=== PATIENT | female | born 1990 | race Caucasian/White ===

== ENCOUNTER 2017-01-23 13:54 | Emergency (ER) | payer MEDICAID, MEDICARE, OTHER ==
[2017-01-23 14:03] VITALS: BMI 22.7
[2017-01-23 14:06] VITALS: BP 125/79; PULSE 67; RESP 18; TEMP 97.9; O2SAT 99
--- NOTE | 2017-01-23 14:20 | C.PDOC ---
History Of Present Illness 26 year old female presents to the ED for evaluation of her left lower leg and knee pain that developed since yesterday. Pt states that while at work she misstep and her leg got trapped between a truck and a loading dock she noted a hematoma to the calf area and immediately applied ice, today she felt more pain to the lateral left knee with some discomfort ambulating. Otherwise, Patient denies head injury, LOC, syncope, denies obvious deformity, weakness, neurovascular deficits to left lower extremity. Ambulate to ED. Time Seen by Provider: 01/23/17 14:07 Chief Complaint (Nursing): Lower Extremity Problem/Injury History Per: Patient History/Exam Limitations: no limitations Onset/Duration Of Symptoms: Days Current Symptoms Are (Timing): Still Present Recent travel outside of the [place]: No Additional History Per: Patient - Knee Description Of Injury: Struck Against Object Currently Unable To: Bear Weight Alleviating Factor(s): Ice Therapy Past Medical History Reviewed: Historical Data, Nursing Documentation, Vital Signs Vital Signs: Last Vital Signs Temp 97.9 F 01/23/17 14:03 Pulse 67 01/23/17 14:03 Resp 18 01/23/17 14:03 BP 125/79 01/23/17 14:03 Pulse Ox 99 01/23/17 14:38 - Medical History PMH: Anxiety, Arthritis (b/l knees as per patient), Bipolar Disorder Surgical History: Appendectomy - [facility] Procedures ANESTH INJECT-SPIN CANAL (10/25/12) MONITORING NOS (07/11/14) INDIVID PSYCHOTHERAP NEC (04/04/13) MANUAL ASSIST DELIV NEC (07/11/14) OTHER GROUP THERAPY (04/04/13) REPAIR OB LACERATION NEC (07/11/14) Family History: States: Unknown Family Hx - Social History Hx Tobacco Use: Yes (Heavy smoker) Hx Alcohol Use: Yes Hx Substance Use: No - Immunization History Hx Tetanus Toxoid Vaccination: No Hx Influenza Vaccination: No Hx Pneumococcal Vaccination: No Review Of Systems Constitutional: Negative for: Fever, Chills Cardiovascular: Negative for: Chest Pain Respiratory: Negative for: Cough, Shortness of Breath Gastrointestinal: Negative for: Nausea, Vomiting, Abdominal Pain Musculoskeletal: Positive for: Leg Pain (Left knee) Skin: Positive for: Bruising Neurological: Negative for: Weakness, Numbness, Headache, Dizziness Physical Exam - Physical Exam Appears: Well, Non-toxic, No Acute Distress Skin: Normal Color, Warm, No Rash, Ecchymosis (Left lower leg) Head: Atraumatic, Normacephalic Eye(s): bilateral: PERRL Extremity: Normal ROM (mild discomfort to left knee Flexion ), Tenderness ( medial aspect Left knee), Capillary Refill (less than 2sec to left foot), No Deformity, Other (trace ecchymoses with small hematoma over inner aslepct proximal tibia.) Neurological/Psych: Oriented x3, Normal Speech, Normal Motor, Normal Sensation, Normal Reflexes ED Course And Treatment O2 Sat by Pulse Oximetry: 99 (On RA) Pulse Ox Interpretation: Normal - Other Rad Left knee X-Ray: Interpreted by Me, Viewed By Me Interpretation: IMPRESSION: No evidence of acute displaced fracture nor dislocation. Left tib/fib X-Ray: Interpreted by Me, Viewed By Me Interpretation: IMPRESSION: No evidence acute displaced fracture nor dislocation. Progress Note: On re-evaluation, pt is afebrile, hemodynamicaly stable. Non- toxic. Ambulatory in ED with stable gait. Head: AT/NC. neck: Supple, (-) mildline tenderness. Left LE; exam c/w knee contusion, hematoma to calf area, no obvious deformity, no neurovascular deficits. XR review and appears normal study. Aashish wrap to left knee applied. Pt has clinical findings c/w left knee strain, lft lower leg hematoma. Pt advised. ref. to f/u with Ortho in 2-3 days for re-eavl. return to ED if any worsening or new changes. Disposition Counseled Patient/Family Regarding: Studies Performed, Diagnosis, Need For Followup, Rx Given - Disposition Referrals: Matt Anderson MD [Medical Doctor] - Vicente Briceno MD [Staff Provider] - Disposition Time: 15:01 Condition: STABLE Additional Instructions: KNEE BRACE/AVE WRAP TO LEFT KNEE FOR 1-2 WEEKS LIGHT DUTY TO INJURED LEG, AVOID PROLONG WALKING FOR 1 WEEK IBUPROFEN NEED FOR PAIN FOLLOW UP WITH ORTHOPEDIST IN 2-3 DAYS FOR RE-EVALUATION. RETURN TO ED IF ANY WORSENING OR NEW CHANGES. Instructions: Knee Sprain (ED), Hematoma (ED) Forms: [facility] (Romansh), Work Excuse - Clinical Impression Clinical Impression: Contusion of lower leg, left, Knee sprain - PA / PROGRAM PRODUCTION SPECIALIST / Resident Statement MD/DO has reviewed & agrees with the documentation as recorded. - Scribe Statement The provider has reviewed the documentation as recorded by the Scribe Juan Weinstein All medical record entries made by the Libbyibroly were at my direction and personally dictated by me. I have reviewed the chart and agree that the record accurately reflects my personal performance of the history, physical exam, medical decision making, and the department course for this patient. I have also personally directed, reviewed, and agree with the discharge instructions and disposition.
--- NOTE | 2017-01-23 15:13 | RAD ---
PROCEDURE: Left knee dated 01/23/2017 HISTORY: Pain. COMPARISON: Correlation made with concurrent radiographs of the left tibia and fibula. FINDINGS: BONES: Normal. No evidence of acute displaced fracture nor dislocation. Fracture. JOINTS: Joint spaces preserved. No significant Osteoarthritis. JOINT EFFUSION: No significant joint effusion. OTHER FINDINGS: No subcutaneous air or radiopaque foreign bodies IMPRESSION: No evidence of acute displaced fracture nor dislocation.
--- NOTE | 2017-01-23 15:14 | RAD ---
PROCEDURE: Left tibia fibula dated 01/23/2017 HISTORY: Injury. COMPARISON: No prior study available for comparison however correlation made with concurrent radiographs of the left knee. TECHNIQUE: Frontal and lateral views obtained. FINDINGS: BONES: No evidence of acute displaced fracture nor dislocation. The osseous structures appear intact. No cortical destructive changes. JOINT SPACES: Joint spaces preserved. No significant osteoarthritis. OTHER FINDINGS: No evidence of subcutaneous air. No radiopaque foreign bodies. IMPRESSION: No evidence acute displaced fracture nor dislocation.
== END 2017-01-23 15:39 | disposition home or self-care (01) ==
LOC: C.ER 13:54
DX: S83.92XA Sprain of unspecified site of left knee, initial encounter (principal); S80.12XA Contusion of left lower leg, initial encounter; W23.0XXA Caught, crushed, jammed, or pinched between moving objects, initial encounter; Y92.89 Other specified places as the place of occurrence of the external cause; Y99.0 Civilian activity done for income or pay

== ENCOUNTER 2017-04-28 16:35 | Emergency (ER) | payer MEDICAID, MEDICARE, OTHER ==
[2017-04-28 16:35] VITALS: BMI 22.7
[2017-04-28 16:41] VITALS: BP 128/77; PULSE 78; RESP 20; TEMP 98.3; O2SAT 98
--- NOTE | 2017-04-28 17:20 | C.PDOC ---
History Of Present Illness 26 y/o female presents to ED with complaints of itchy rash for 1 week developed first on chest and spread to back. Patient reports not applying any medication to area and denies fever, sob or chest pain. Time Seen by Provider: 04/28/17 17:02 Chief Complaint (Nursing): Allergic Reaction History Per: Patient History/Exam Limitations: no limitations Onset/Duration Of Symptoms: Days Current Symptoms Are (Timing): Still Present Past Medical History Reviewed: Historical Data, Nursing Documentation, Vital Signs Vital Signs: Last Vital Signs Temp 98.3 F 04/28/17 16:39 Pulse 78 04/28/17 16:39 Resp 20 04/28/17 16:39 BP 128/77 04/28/17 16:39 Pulse Ox 98 04/28/17 19:33 - Medical History PMH: Anxiety, Arthritis (b/l knees as per patient), Bipolar Disorder Surgical History: Appendectomy - [facility] Procedures ANESTH INJECT-SPIN CANAL (10/25/12) MONITORING NOS (07/11/14) INDIVID PSYCHOTHERAP NEC (04/04/13) MANUAL ASSIST DELIV NEC (07/11/14) OTHER GROUP THERAPY (04/04/13) REPAIR OB LACERATION NEC (07/11/14) Family History: States: No Known Family Hx - Social History Hx Tobacco Use: Yes (Heavy smoker) Hx Alcohol Use: Yes Hx Substance Use: No - Immunization History Hx Tetanus Toxoid Vaccination: No Hx Influenza Vaccination: No Hx Pneumococcal Vaccination: No Review Of Systems Constitutional: Negative for: Fever, Chills Cardiovascular: Negative for: Chest Pain Respiratory: Negative for: Shortness of Breath Gastrointestinal: Negative for: Nausea, Vomiting Skin: Positive for: Rash Physical Exam - Physical Exam Appears: Non-toxic, No Acute Distress Skin: Warm, Dry, Rash (pink colored scaly patches to chest and back) Head: Atraumatic, Normacephalic Eye(s): bilateral: Normal Inspection, EOMI Ear(s): Bilateral: Normal Oral Mucosa: Moist Throat: Normal, No Erythema, No Exudate Neck: Normal ROM, Supple Cardiovascular: Rhythm Regular Respiratory: Normal Breath Sounds, No Rales, No Rhonchi, No Wheezing Gastrointestinal/Abdominal: Soft, No Tenderness, No Guarding, No Rebound Extremity: Bilateral: Atraumatic Neurological/Psych: Oriented x3, Normal Speech Gait: Steady ED Course And Treatment O2 Sat by Pulse Oximetry: 98 (RA) Pulse Ox Interpretation: Normal Medical Decision Making Medical Decision Making: Patient with rash for one week. rash appears similar to pityriasis rosea and there are some scaly annular lesions on back. Will treat with antifungal cream and advise follow up with television reporter Disposition Counseled Patient/Family Regarding: Diagnosis, Need For Followup, Rx Given - Disposition Referrals: Breann French MD [Staff Provider] - Disposition: HOME/ ROUTINE Disposition Time: 17:15 Condition: GOOD Additional Instructions: apply cream to affected areas twice a day for 2-4 weeks follow up with television reporter if rash persists Prescriptions: Ketoconazole 2% Cr [Nizoral] 15 applic EXT BID 14 Days #1 tube Instructions: Ringworm Forms: [facility] (Burundian) - POA Present On Arrival: None - Clinical Impression Clinical Impression: Pityriasis rosea-like skin eruption, Tinea - PA / SCUDDING INSPECTOR / Resident Statement MD/DO has reviewed & agrees with the documentation as recorded. - Scribe Statement The provider has reviewed the documentation as recorded by the Theodore Paz All medical record entries made by the Theodore were at my direction and personally dictated by me. I have reviewed the chart and agree that the record accurately reflects my personal performance of the history, physical exam, medical decision making, and the department course for this patient. I have also personally directed, reviewed, and agree with the discharge instructions and disposition.
== END 2017-04-28 17:40 | disposition home or self-care (01) ==
LOC: C.ER 16:35
DX: L42 Pityriasis rosea (principal); B35.9 Dermatophytosis, unspecified; F17.210 Nicotine dependence, cigarettes, uncomplicated

== ENCOUNTER 2017-05-12 20:08 | Emergency (ER) | payer OTHER ==
[2017-05-12 20:08] VITALS: BMI 22.7
[2017-05-12 20:31] VITALS: BP 113/71; PULSE 54; RESP 20; TEMP 98.1; O2SAT 98
--- NOTE | 2017-05-12 20:58 | C.PDOC ---
History Of Present Illness 26 year old female presents to the ED complaining of itchy rash for 3 weeks. Initially the rash was localized to her chest, but has been spreading throughout extremities. Patient was seen here 2 weeks ago and discharged with antifungal cream. States she tried applying the cream with no improvement. Patient has not been able to follow up with dermatology. No fever, SOB, or chest pain. Time Seen by Provider: 05/12/17 20:32 Chief Complaint (Nursing): Abnormal Skin Integrity History Per: Patient History/Exam Limitations: no limitations Onset/Duration Of Symptoms: Days (x 3 weeks) Current Symptoms Are (Timing): Still Present Quality Of Symptoms: Itching Past Medical History Reviewed: Historical Data, Nursing Documentation, Vital Signs Vital Signs: Last Vital Signs Temp 98.1 F 05/12/17 20:27 Pulse 54 L 05/12/17 20:27 Resp 20 05/12/17 20:27 BP 113/71 05/12/17 20:27 Pulse Ox 98 05/12/17 21:01 - Medical History PMH: Anxiety, Arthritis (b/l knees as per patient), Bipolar Disorder Surgical History: Appendectomy - [facility] Procedures ANESTH INJECT-SPIN CANAL (10/25/12) MONITORING NOS (07/11/14) INDIVID PSYCHOTHERAP NEC (04/04/13) MANUAL ASSIST DELIV NEC (07/11/14) OTHER GROUP THERAPY (04/04/13) REPAIR OB LACERATION NEC (07/11/14) Family History: States: Unknown Family Hx - Social History Hx Tobacco Use: Yes (Heavy smoker) Hx Alcohol Use: Yes Hx Substance Use: No - Immunization History Hx Tetanus Toxoid Vaccination: No Hx Influenza Vaccination: No Hx Pneumococcal Vaccination: No Review Of Systems Constitutional: Negative for: Fever, Chills Cardiovascular: Negative for: Chest Pain Respiratory: Negative for: Shortness of Breath Skin: Positive for: Rash (to chest, back, extremities) Physical Exam - Physical Exam Appears: Well, Non-toxic, No Acute Distress Skin: Warm, Dry, Rash ([place] colored scaly patches to chest, back, and upper and lower extremities) Head: Atraumatic, Normacephalic Eye(s): bilateral: Normal Inspection Neck: Normal ROM, Supple Chest: Symmetrical Cardiovascular: Rhythm Regular, No Murmur Respiratory: Normal Breath Sounds, No Accessory Muscle Use, No Rales, No Rhonchi , No Wheezing Extremity: Bilateral: Atraumatic, Normal ROM Neurological/Psych: Oriented x3, Normal Speech ED Course And Treatment O2 Sat by Pulse Oximetry: 98 (RA) Pulse Ox Interpretation: Normal Medical Decision Making Medical Decision Making: Impression: pityriasis rosea Counseled patient regarding diagnosis and the need for follow up with dermatology. Will discharge patient with Clotrimazole 1% cream. Disposition Counseled Patient/Family Regarding: Diagnosis, Need For Followup, Rx Given - Disposition Referrals: Isma Montes MD [Staff Provider] - Breann French MD [Staff Provider] - Disposition: HOME/ ROUTINE Disposition Time: 20:55 Condition: STABLE Additional Instructions: Your rash appears to be pityriasis rosea which is self limited and will resolve on its own can take 2-8 weeks to clear. You can take Carina, Claritin, or Benadryl for any itching. Apply cream as needed You can follow up with computer science professor Prescriptions: Clotrimazole 1% Cream [Lotrimin 1%] 1 gm TP DAILY #1 tube Instructions: Pityriasis Rosea Forms: [employer] [facility] (Portuguese) - POA Present On Arrival: None - Clinical Impression Clinical Impression: Pityriasis rosea-like skin eruption - PA / POWER SYSTEM ELECTRICAL ENGINEER / Resident Statement MD/DO has reviewed & agrees with the documentation as recorded. - Scribe Statement The provider has reviewed the documentation as recorded by the Scribe (Kylee Dillard) All medical record entries made by the Scribe were at my direction and personally dictated by me. I have reviewed the chart and agree that the record accurately reflects my personal performance of the history, physical exam, medical decision making, and the department course for this patient. I have also personally directed, reviewed, and agree with the discharge instructions and disposition.
== END 2017-05-12 20:55 | disposition home or self-care (01) ==
LOC: C.ER 20:08
DX: L42 Pityriasis rosea (principal); F17.210 Nicotine dependence, cigarettes, uncomplicated

== ENCOUNTER 2017-08-12 10:03 | Emergency (ER) | payer SELFPAY ==
[2017-08-12 10:03] VITALS: BMI 22.7
[2017-08-12 10:20] VITALS: BP 120/80; PULSE 78; RESP 18; TEMP 99.5; O2SAT 100
--- NOTE | 2017-08-12 10:34 | C.PDOC ---
History Of Present Illness 27yo female, presents to ED for evaluation of rash to bilateral eyes for the past 2 days . Patient states the rash is itchy but denies any pain. She denies any new soaps, detergent, or lotion use. No vision changes, fever or chills. Time Seen by Provider: 08/12/17 10:12 Chief Complaint (Nursing): Abnormal Skin Integrity History Per: Patient History/Exam Limitations: no limitations Onset/Duration Of Symptoms: Days (2) Current Symptoms Are (Timing): Still Present Quality Of Symptoms: Itching Past Medical History Reviewed: Historical Data, Nursing Documentation, Vital Signs Vital Signs: Last Vital Signs Temp 99.5 F 08/12/17 10:08 Pulse 78 08/12/17 10:08 Resp 18 08/12/17 10:08 BP 120/80 08/12/17 10:08 Pulse Ox 100 08/12/17 10:51 - Medical History PMH: Anxiety, Arthritis (b/l knees as per patient), Bipolar Disorder Surgical History: Appendectomy - [facility] Procedures ANESTH INJECT-SPIN CANAL (10/25/12) MONITORING NOS (07/11/14) INDIVID PSYCHOTHERAP NEC (04/04/13) MANUAL ASSIST DELIV NEC (07/11/14) OTHER GROUP THERAPY (04/04/13) REPAIR OB LACERATION NEC (07/11/14) Family History: States: Unknown Family Hx - Social History Hx Tobacco Use: Yes (Heavy smoker) Hx Alcohol Use: Yes Hx Substance Use: No - Immunization History Hx Tetanus Toxoid Vaccination: No Hx Influenza Vaccination: No Hx Pneumococcal Vaccination: No Review Of Systems Except As Marked, All Systems Reviewed And Found Negative. Eyes: Positive for: Other (rash around bilateral eyes). Negative for: Vision Change Respiratory: Negative for: Shortness of Breath Physical Exam - Physical Exam Appears: Non-toxic, No Acute Distress Skin: Warm, Dry, Rash (maculopapular erythematous rash on bilateral eyes, right > left. no ocular involvement, no lesions, no vesicles) Eye(s): bilateral: Normal Inspection, PERRL, EOMI Oral Mucosa: Moist Cardiovascular: Rhythm Regular Respiratory: Normal Breath Sounds Neurological/Psych: Oriented x3 ED Course And Treatment O2 Sat by Pulse Oximetry: 100 (RA) Pulse Ox Interpretation: Normal Medical Decision Making Medical Decision Making: Impression: Rash Plan: -- Prednisone 60mg PO Progress: Patient reports feeling much better, stable for discharge home. Instructed to take medications as prescribed and follow up with PMD in 2-3 days. Disposition Counseled Patient/Family Regarding: Studies Performed, Diagnosis - Disposition Referrals: Matt Anderson MD [Medical Doctor] - Disposition: HOME/ ROUTINE Disposition Time: 10:37 Condition: STABLE Additional Instructions: follow up with your doctor within 2 days call to make an appointment take medications as prescribed return to ER if symptoms worsens or progress take benadryl as needed for itching Prescriptions: Hydrocortisone 1% Cream [Cortizone 1% Cream] 1 appl TP BID #1 tube predniSONE [predniSONE Tab] 20 mg PO BID #10 tab Instructions: Skin Rash (DC) Forms: [facility] (Georgian), General Discharge Instructions - Clinical Impression Clinical Impression: Rash - Scribe Statement The provider has reviewed the documentation as recorded by the Scribe (Macarena Avila) Provider Attestation: All medical record entries made by the Scribe were at my direction and personally dictated by me. I have reviewed the chart and agree that the record accurately reflects my personal performance of the history, physical exam, medical decision making, and the department course for this patient. I have also personally directed, reviewed, and agree with the discharge instructions and disposition.
== END 2017-08-12 11:00 | disposition home or self-care (01) ==
LOC: C.ER 10:03
DX: R21 Rash and other nonspecific skin eruption (principal)

== ENCOUNTER 2018-04-12 04:15 | Emergency (ER) | payer SELFPAY ==
[2018-04-12 04:16] VITALS: BMI 22.7
[2018-04-12 04:35] VITALS: TEMP 97.5
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
[2018-04-12] MEDS ORDERED: Ophthalmic Irrigation, Soln ONE (05:45)
[2018-04-12] MEDS ORDERED: Ophthalmic Irrigation, Soln OU ONE (05:53)
[2018-04-12 06:04] VITALS: BP 110/70; PULSE 80; RESP 14
[2018-04-12 21:51] VITALS: O2SAT 97
== END 2018-04-12 06:03 | disposition home or self-care (01) ==
LOC: C.ER 04:15
DX: Z77.098 Contact with and (suspected) exposure to other hazardous, chiefly nonmedicinal, chemicals (principal); L24.9 Irritant contact dermatitis, unspecified cause; H57.89 Other specified disorders of eye and adnexa

== ENCOUNTER 2018-06-11 11:47 | Emergency (ER) | payer SELFPAY ==
[2018-06-11 11:52] VITALS: BMI 25.9
[2018-06-11 11:55] VITALS: RESP 18
--- NOTE | 2018-06-11 13:16 | C.PDOC ---
History Of Present Illness 27-year-old female presents to the ED for evaluation of left ankle pain and swelling which developed over the past 3 weeks. Patient is unable to recall any known trauma/injury to the area. She reports pain is localized over her left ankle and is worse with weight bearing. She denies obvious deformity, weakness or sensorivascular deficits to the leg. Time Seen by Provider: 06/11/18 12:19 Chief Complaint (Nursing): Lower Extremity Problem/Injury History Per: Patient History/Exam Limitations: no limitations Onset/Duration Of Symptoms: Other (3 weeks ) Current Symptoms Are (Timing): Still Present Additional History Per: Patient - Knee Description Of Injury: denies: Fell, Struck With Object, Struck Against Object, Twisted Past Medical History Reviewed: Historical Data, Nursing Documentation, Vital Signs Vital Signs: Last Vital Signs Temp 98.3 F 06/11/18 11:52 Pulse 64 06/11/18 11:52 Resp 18 06/11/18 11:52 BP 135/84 06/11/18 11:52 Pulse Ox 98 06/11/18 11:52 - Medical History PMH: Anxiety, Arthritis (b/l knees as per patient), Bipolar Disorder, Depression Surgical History: Appendectomy (2008) - [facility] Procedures ANESTH INJECT-SPIN CANAL (10/25/12) MONITORING NOS (07/11/14) INDIVID PSYCHOTHERAP NEC (04/04/13) MANUAL ASSIST DELIV NEC (07/11/14) OTHER GROUP THERAPY (04/04/13) REPAIR OB LACERATION NEC (07/11/14) Family History: States: Unknown Family Hx - Social History Hx Tobacco Use: Yes (Heavy smoker) Hx Alcohol Use: Yes Hx Substance Use: No - Immunization History Hx Tetanus Toxoid Vaccination: No Hx Influenza Vaccination: No Hx Pneumococcal Vaccination: No Review Of Systems Constitutional: Negative for: Fever, Chills, Weakness Musculoskeletal: Positive for: Other (left ankle pain and swelling ) Skin: Negative for: Rash, Lesions, Jaundice, Bruising Neurological: Negative for: Weakness, Numbness Physical Exam - Physical Exam Appears: Well, Non-toxic, No Acute Distress Skin: Normal Color, Warm, No Rash, No Ecchymosis Head: Atraumatic, Normacephalic Extremity: Normal ROM (Left ankle), Tenderness (over lateral malleolus of left ankle extend down to dorsal asepct left foot overlying 5th MTB), No Calf Tenderness, Capillary Refill (less than 2sec to left foot), No Deformity, Swelling (mild over Left lateral malleolus) Neurological/Psych: Oriented x3, Normal Speech, Normal Motor, Normal Sensation, Normal Reflexes ED Course And Treatment O2 Sat by Pulse Oximetry: 98 Pulse Ox Interpretation: Normal Progress Note: Left foot XR and Left ankle XR ordered and reviewed. On re-eval, afebrile, hemodynamicaly stable. Imagings review and appears noraml. Air cast applied on injured ankle. pt advisd and ref. to F/u with [employer] in 2-3 days for re-eavl. return if any new changes Disposition Counseled Patient/Family Regarding: Studies Performed, Diagnosis, Need For Followup, Rx Given - Disposition Referrals: 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 - Scribe Statement The provider has reviewed the documentation as recorded by the Scribe (Belkys Will) All medical record entries made by the Scribe were at my direction and personally dictated by me. I have reviewed the chart and agree that the record accurately reflects my personal performance of the history, physical exam, medical decision making, and the department course for this patient. I have also personally directed, reviewed, and agree with the discharge instructions and disposition.
[2018-06-11 13:27] VITALS: BP 126/80; PULSE 76; TEMP 98.1
--- NOTE | 2018-06-11 13:33 | RAD ---
Date of service: 06/11/2018 PROCEDURE: Left Foot Radiographs. HISTORY: Injury COMPARISON: None. TECHNIQUE: 3 views obtained. FINDINGS: BONES: Bone alignment and mineralization are normal. There is no acute displaced fracture or bone destruction. JOINTS: The joint spaces are preserved. SOFT TISSUES: Normal. OTHER FINDINGS: None. IMPRESSION: No acute displaced fracture or dislocation.
--- NOTE | 2018-06-11 13:33 | RAD ---
Date of service: 06/11/2018 PROCEDURE: Left Ankle Radiographs. HISTORY: Injury COMPARISON: None available. TECHNIQUE: 3 views obtained. FINDINGS: BONES: Bone alignment and mineralization are normal. There is no acute displaced fracture or bone destruction. JOINTS: Normal. Ankle mortise maintained. Talar dome intact SOFT TISSUES: There is mild lateral soft tissue swelling. OTHER FINDINGS: None. IMPRESSION: No acute displaced fracture or dislocation. Mild lateral soft tissue swelling.
[2018-06-11 20:21] VITALS: O2SAT 98
== END 2018-06-11 13:27 | disposition home or self-care (01) ==
LOC: C.ER 11:47
DX: S93.402A Sprain of unspecified ligament of left ankle, initial encounter (principal); X58.XXXA Exposure to other specified factors, initial encounter